=== PATIENT | male | born 1990 | race Caucasian/White ===

== ENCOUNTER 2018-03-28 04:40 | Emergency (ER) | payer SELFPAY ==
[~2018-03-28] VITALS: Ht 182.9 cm; Wt 81.6 kg
--- NOTE | 2018-03-28 04:40 | NUR ---
PT AMBULATED TO CHAIR E.
[2018-03-28 04:44] VITALS: BP 136/77
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
--- NOTE | 2018-03-28 05:09 | NUR ---
Patient discharged with v/s stable. Written and verbal after care instructions given and explained. Patient verbalized understanding. Ambulatory with steady gait. All questions addressed prior to discharge. Advised to follow up with PMD.
[2018-03-28 05:12] VITALS: BP 136/77
== END 2018-03-28 05:10 ==
LOC: MED 04:40
DX: R03.0 Elevated blood-pressure reading, without diagnosis of hypertension (principal); Z02.89 Encounter for other administrative examinations; V89.2XXA Person injured in unspecified motor-vehicle accident, traffic, initial encounter; Y93.89 Activity, other specified; Y92.89 Other specified places as the place of occurrence of the external cause; Y99.8 Other external cause status
CPT/HCPCS: 99283